=== PATIENT | female | born 1970 | race Two or more races ===

== ENCOUNTER 2023-12-15 15:41 | Emergency (ER) | payer MEDICAID, SELFPAY ==
--- NOTE | ~2023-12-15 | XR_ITS ---
EXAMINATION: XR CHEST 2 VIEWS CLINICAL INFORMATION: Sternal chest pain; burning sensation when breathing. COMPARISON: Chest radiographs dated 01/09/2012. TECHNIQUE: Frontal and lateral views of the chest were obtained. FINDINGS: The heart, great vessels, pulmonary vasculature and mediastinum are normal. The lungs show no focal infiltrate, effusion or pneumothorax. There is no acute osseous abnormality. There is a slight thoracic dextroscoliosis, which may be positional. XR/XR chest 2V IMPRESSION: No active cardiopulmonary disease.
[2023-12-15 16:40] VITALS: BP 104/65; PULSE 91; RESP 16; TEMP 36.8; O2SAT 100
--- NOTE | 2023-12-15 16:51 | ECG_ITS ---
Test Reason : CP Blood Pressure : / mmHG Vent. Rate : 086 BPM Atrial Rate : 086 BPM P-R Int : 134 ms QRS Dur : 068 ms QT Int : 356 ms P-R-T Axes : 073 022 052 degrees QTc Int : 426 ms Normal sinus rhythm Normal ECG No previous ECGs available Referred By: Leigh Bear Electronically Signed By:Trevor Monzon
--- NOTE | 2023-12-15 16:51 | ED.GENADULT ---
HPI - General Adult General Chief complaint: Back Pain/Injury Stated complaint: radiating pain from back around to ribs Time Seen by Provider: 12/15/23 21:28 Source: patient and family Mode of arrival: ambulatory Limitations: no limitations History of Present Illness HPI narrative: 53 yo female with PMH of DM, fibromyalgia here with c/o R sided rib and sternum pain after throwing luggage 9 weeks ago. She notes worse with palpation and movements. Has been seen x 2 in [place] when she went to see her daughter and started on motrin. Pain has never gotten better. No other associated symptoms MD complaint: chest wall pain Onset (ago): week(s) (9) Location: chest Radiation: back Severity: severe Quality: other (spasm) Pain Consistency: constant Relieving factors: rest Exacerbating factors: movement Associated symptoms: denies other symptoms Treatments prior to arrival: none Related Data Previous Rx's ?Medication ?Instructions ?Recorded diazepam 2 mg tablet (Valium) 2 mg PO BID PRN muscle spasm #10 12/15/23 tabs Allergies Allergy/AdvReac Type Severity Reaction Status Date / Time acetaminophen [From Percocet] AdvReac Vomiting Verified 12/15/23 16:51 oxycodone [From Percocet] AdvReac Vomiting Verified 12/15/23 16:51 Review of Systems Review of Systems: Constitutional : No Weight loss, No Fever, No Chills ENT/Mouth : No sore throat, No Rhinorrhea Eyes: No Eye Pain, No Swelling Cardiovascular : pos Chest Pain, no SOB, no Dyspnea on Exertion, No Orthopnea, No Edema, No Palpitations Respiratory : No Cough, No Sputum Gastrointestinal : no Nausea, No Vomiting, No Diarrhea, No abdominal Pain, No Hematochezia, No Melena Genitourinary : No Dysuria, No Urinary Frequency Musculoskeletal : No joint pain, No Myalgias, No Joint Swelling Skin : No Skin Lesions, No rash Neuro : No Weakness, No Numbness, No Dizziness, No Headache Psych : No Anxiety/Panic, No Depression All other systems reviewed and are negative [facility] Past Medical History Attestation statement: The following information was validated with the patient. Source: old records reviewed Medical History Fibromyalgia Diabetes Social History Social History (Updated 12/15/23 @ 22:01 by Spring Thomas DO) Patient Tobacco Use Status: Never used Tobacco Physical Exam ED Vital Signs: Vital Signs - 24 hr 12/15/23 16:40 12/15/23 20:06 Temperature 98.3 F 98.8 F Pulse Rate 91 87 Respiratory Rate 16 18 Blood Pressure 104/65 136/78 Pulse Oximetry 100 98 Oxygen Delivery Method Room Air Room Air BMI result Body Mass Index 20.0 Appearance: Alert. Oriented X3. No acute distress. Eyes: Pupils equal, round and reactive to light. ENT: Pharynx normal. Neck: Normal inspection. Neck supple. CVS: Normal heart rate and rhythm. Pulses normal. Chest: ttp along R ribs and costochondral border Respiratory: No respiratory distress. Breath sounds normal. Abdomen: Soft and nontender. Skin: Skin warm and dry. Normal skin color. Normal skin turgor. Extremities: No lower extremity edema. No calf ttp Neuro: Oriented X 3. No motor deficit. No sensory deficit. Course Course Course Narrative: This is an RME: Additional HPI, ROS, PE not included below will be deferred to primary provider. This is a [id number]-female, with a hx of fibromylagia, who presents to the ER with complaints of back pain after throwing her back out from luggage. She has been having chest pain, and feels swollen . She has been taking ibuprofen, muscle relaxants without any relief. Plan: EKG, CXR, Labs Medical Decision Making Medical Decision Making [facility] Narrative: 53 yo female with PMH of DM and fibromyalgia with 9 weeks of chest pain and rib pain after throwing luggage is it markedly reproduceable no other associated symptoms to suggest ACS or VTE. Suspect MSK pain will start on MRs and refer to her PCP. EKG, CXR and labs reassuring at this time. Differential Diagnosis Differential Diagnoses: The differential diagnosis associated with the presentation includes strain, costochondritis Admission/Observation Consideration of admission/observation: Escalation of care including admission/observation considered work up negative at 9 weeks stable for DC Lab Data [facility] Lab Attestation statement: I reviewed the patient's lab results. 12/15/23 17:01 12/15/23 17:01 Labs: Lab Results 12/15/23 Range/Units 17:01 WBC 5.5 (4.8-10.8) X10*3/uL RBC 4.96 (4.20-5.50) X10*6/uL Hgb 13.3 (12.0-16.0) g/dl Hct 40.5 (37.0-47.0) % MCV 81.7 (80.0-98.0) fL MCH 26.8 L (27.0-33.0) pg MCHC 32.8 (31.0-35.0) g/dl RDW 13.8 (11.0-16.0) % Plt Count 227 (160-400) X10*3/uL MPV 10.2 (9.4-12.3) fL Immature Gran % (Auto) 0.2 (0.0-0.4) % Neut % (Auto) 28.3 L (45-73) % Lymph % (Auto) 62.3 H (20-40) % Grainger % (Auto) 4.8 (2-11) % Eos % (Auto) 3.7 (0-4) % Baso % (Auto) 0.7 (0-2) % Lymph # (Auto) 3.4 (1.2-4.9) X10*3/uL Grainger # (Auto) 0.3 (0.1-1.2) X10*3/uL Eos # (Auto) 0.2 (0.0-0.4) X10*3/uL Baso # (Auto) 0.0 (0.0-0.2) X10*3/uL Abs Immat Gran (auto) 0.01 (0.00-0.03) X10*3/uL Absolute Neuts (auto) 1.6 L (2.0-8.3) x10*3/uL Absolute Nucleated RBC 0.000 (0.0-0.012) X10*3/uL Nucleated RBC % (auto) 0.0 (0.0-0.2) /100WBC Smear Tech's Comments VERIFIED Sodium 139 (135-145) mmol/L Potassium 4.2 (3.3-5.1) mmol/L Chloride 106 (96-108) mmol/L Carbon Dioxide 26 (22-29) mmol/L Anion Gap 11 L (12-20) BUN 16 (9-16) mg/dL Creatinine 0.74 (0.5-1.4) mg/dL Estim Creat Clear Calc 76.4 Estimated GFR > 60 Random Glucose 102 (60-115) mg/dL Calcium 9.2 (8.4-10.2) mg/dL Magnesium 2.4 (1.6-2.6) mg/dL Total Bilirubin 0.2 (0.0-1.0) mg/dL Direct Bilirubin < 0.2 (0.0-0.5) mg/dL AST 11 (5-31) U/L ALT 12 (0-31) U/L Alkaline Phosphatase 51 (39-117) U/L Troponin I High Sens 2.7 (<3.5-17.0) ng/L Total Protein 7.0 (6.5-8.0) g/dL Albumin 4.2 (3.5-5.0) g/dL Lipase 27 (8-78) U/L Influenza Type A (PCR) NEGATIVE (Negative) Influenza Type B (PCR) NEGATIVE (Negative) RSV RNA Qual (PCR) NEGATIVE (Negative) SARS-CoV-2 RNA (RT-PCR) NEGATIVE (Negative) Independent Interpretation I performed an independent interpretation of an: EKG and Plain X-Ray (normal ) Interpretation: Rate: 86 Rhythm: NSR [place]: normal Normal P waves. Normal EMILIA. Normal QRS complex. ST T wave : normal no LILLIAN qTC: 426 prior studies: no acute ischemia The study has been interpreted contemporaneously by me. . Radiology Impression Discussion of test interpretation with radiology: I have reviewed the radiologist's reading. Independent Historian Clinical information obtained from an independent historian. History obtained from or confirmed by: Other Prescription Management I considered prescription management with: Pain Medication and Other Discharge Plan Discharge Clinical Impression: Chest wall pain Patient Disposition: Home, Self-Care Instructions: Chest Wall Pain (ED) Additional Instructions: please follow up with your doctor as soon as possible your labs including heart markers, EKG, chest xray were reassuring return for worsening symptoms or concerns. Prescriptions: New diazepam [Valium] 2 mg tablet 2 mg PO BID PRN (Reason: muscle spasm) Qty: 10 0RF Print Language: Albanian
[2023-12-15 17:09] LABS: Basophils Percent Auto 0.7 % (0-2); Eosinophils Absolute Auto 0.2 X10*3/uL (0.0-0.4); Eosinophils Percent Auto 3.7 % (0-4); Hematocrit 40.5 % (37.0-47.0); Hemoglobin 13.3 g/dl (12.0-16.0); Imm Gran Abs Auto 0.01 X10*3/uL (0.00-0.03); Imm Gran Pct Auto 0.2 % (0.0-0.4); Lymphocytes Absolute Auto 3.4 X10*3/uL (1.2-4.9); Lymphocytes Percent Auto 62.3 % (20-40); MANUAL DIFF FLAG SCAN; Mean Corpuscular HGB Conc 32.8 g/dl (31.0-35.0); Mean Corpuscular Hemoglobin 26.8 pg (27.0-33.0); Mean Corpuscular Volume 81.7 fL (80.0-98.0); Mean Platelet Volume 10.2 fL (9.4-12.3); Monocytes Absolute Auto 0.3 X10*3/uL (0.1-1.2); Monocytes Percent Auto 4.8 % (2-11); Neutrophils Absolute Auto 1.6 x10*3/uL (2.0-8.3); Neutrophils Percent Auto 28.3 % (45-73); Platelet Count 227 X10*3/uL (160-400); Red Blood Count 4.96 X10*6/uL (4.20-5.50); Red Cell Distribution Width 13.8 % (11.0-16.0); SCAN SMEAR FLAG 1; White Blood Count 5.5 X10*3/uL (4.8-10.8)
[2023-12-15 17:26] LABS: Alanine Aminotransferase 12 U/L (0-31); Albumin Level 4.2 g/dL (3.5-5.0); Alkaline Phosphatase 51 U/L (39-117); Anion Gap 11 (12-20); Aspartate Amino Transferase 11 U/L (5-31); Bilirubin Direct < 0.2 mg/dL (0.0-0.5); Bilirubin Total 0.2 mg/dL (0.0-1.0); Blood Urea Nitrogen 16 mg/dL (9-16); Calcium 9.2 mg/dL (8.4-10.2); Carbon Dioxide 26 mmol/L (22-29); Chloride 106 mmol/L (96-108); Creatinine Clr Calc Pharmacy 76.4; Estimated Glomerular Filt Rate > 60; Glucose Random 102 mg/dL (60-115); Lipase 27 U/L (8-78); Magnesium 2.4 mg/dL (1.6-2.6); Potassium 4.2 mmol/L (3.3-5.1); Sodium 139 mmol/L (135-145)
[2023-12-15 17:32] LABS: Troponin-I High Sensitivity 2.7 ng/L (<3.5-17.0)
[2023-12-15 17:40] LABS: SLIDE REVIEW VERIFIED
[2023-12-15 17:44] LABS: Influenza A PCR NEGATIVE (Negative); Influenza B PCR NEGATIVE (Negative); Resp Syncy Virus RNA Qual PCR NEGATIVE (Negative); SARS COV2 PCR INHOUSE NEGATIVE (Negative)
[2023-12-15 20:06] VITALS: BP 136/78; PULSE 87; RESP 18; TEMP 37.1; O2SAT 98
[2023-12-15] MEDS: diazePAM 5 MG TABLET PO (22:18)
[2023-12-15 22:21] VITALS: BP 153/90; PULSE 86; RESP 18; TEMP 36.8; O2SAT 99
== END 2023-12-15 22:22 | disposition home or self-care (01) ==
PROVIDERS: Physician Assistant Medical; Emergency Provider Emergency Medicine; PCP Nurse Practitioner Family
DX: M54.50 Low back pain, unspecified (principal); M79.7 Fibromyalgia; R07.89 Other chest pain; Z11.52 Encounter for screening for COVID-19; Z20.822 Contact with and (suspected) exposure to COVID-19; Z79.899 Other long term (current) drug therapy
CPT/HCPCS: 0241U; 71046; 80048; 80076; 83690; 83735; 84484; 85025; 93005; 99283; 99284

== ENCOUNTER → 2023-12-15 16:51 | Outpatient (BNV) | payer MEDICAID, SELFPAY | PROVIDERS: Emergency Provider Emergency Medicine; PCP Nurse Practitioner Family; Visit Provider Internal Medicine Cardiovascular Disease | DX: R07.9 Chest pain, unspecified (principal) | CPT/HCPCS: 93010 ==

== ENCOUNTER 2024-04-02 09:25 | Outpatient (AMB) | payer MEDICAID, SELFPAY ==
--- NOTE | 2024-04-02 09:26 | MHC.OFFVIS ---
Vital Signs 04/02/24 09:28 Height 5 ft 5 in Weight 102 lb BMI 17.0 BP 127/79 Blood Pressure Location Lt brachial Position Sitting Pulse 111 H Pulse Source Pulse Oximeter Pulse Oximetry (%) 96 Oxygen Delivery Method Room Air Intake Visit Reasons: Chronic Back Pain/Fibromyalgia Allergies acetaminophen [From Percocet] Adverse Reaction (Verified 04/02/24 09:34) Vomiting oxycodone [From Percocet] Adverse Reaction (Verified 04/02/24 09:34) Vomiting Medication List - Last Reconciled 04/02/24 by Evelyn Urias diazepam (Valium) 2 mg PO BID PRN ibuprofen 400 mg PO Q8H HPI Comments Details: Sherri is a very pleasant 53-year-old female who presents the office today for evaluation and management of her chronic thoracic back pain. She has been suffering with this pain for the last 6 months. Pain started after she lifted approximately 50 lb of luggage while on a trip to visit her child Since then patient has been suffering with midline thoracic back pain with radiation around to the front. Pain is worse with movement, palpation, activity. Pain today is rated as a 10/10, constant. She has been evaluated in the emergency room for this pain multiple times without findings. She completed physical therapy 3 months ago without improvement of her pain. She has tried massage, heat without improvement of her pain. NSAIDs provided minimal improvement. Muscle relaxers were of no help. She formally was on gabapentin, this was discontinued. In last 6 months she has been given 3 courses of oral steroids which have not improved her pain, completed most recent course of prednisone one-week ago. Patient reports the pain is so severe she is having difficulty eating and will often vomit from the pain. She is currently under the care of GI, awaiting upper endoscopy. In terms of muscle damage condition is described as spasming, stabbing, sharp, tingling, shooting, shocking, cramping, numb, throbbing. Pain is negatively impacting patient's enjoyment of life, general activity, mood, normal work, recreational activity, sleep and walking. Patient is known diabetic, she reports her numbers have been controlled. States she is currently off all of her diabetes medications. [facility] Medical History Fibromyalgia Diabetes Social History (Updated 12/15/23 @ 22:01 by Spring Thomas DO) Patient Tobacco Use Status: Never used Tobacco Review of Systems Const All systems reviewed & are unremarkable except as noted in HPI and below Physical Exam Vital Signs: Last Vital Signs Pulse 111 H 04/02/24 09:28 BP 127/79 04/02/24 09:28 Pulse Ox 96 04/02/24 09:28 Oxygen Delivery Method Room Air 04/02/24 09:28 BMI result Body Mass Index 17.0 General: awake, alert, oriented. Answers questions appropriately. Fully engaged in examination. Thin. Tearful throughout exam, appears uncomfortable. Skin: warm, dry, intact HEENT: Normocephalic. Hearing intact. Cardiac: External chest normal in appearance. Respiratory: No cough, audible wheezing or stridor. Abdomen: without gross distension. MS: No obvious swelling or deformities. Able to stand on bilateral tiptoes and bilateral heels.? Able to transition from sit to stand unassisted. Ambulates with bilaterally normal heel strike and toe off Tender to palpation midline thoracic vertebrae and thoracic paraspinal muscles bilaterally Neurological: Oriented to person, place, time and situation. Thought process intact. No gait abnormalities appreciated. Psychiatric: Appropriate mood and affect. Good judgment and insight. Results Reviewed Results Reviewed: 12/15/2023 CXR The heart, great vessels, pulmonary vasculature and mediastinum are normal. The lungs show no focal infiltrate, effusion or pneumothorax. There is no acute osseous abnormality. There is a slight thoracic dextroscoliosis, which may be positional. IMPRESSION: No active cardiopulmonary disease. Assessment & Plan Assessment & Plan (1) Chronic midline thoracic back pain: Code(s): M54.6 - Pain in thoracic spine; G89.29 - Other chronic pain Category: Medical Plan Sherri is a very pleasant 53-year-old female who presents the office today for chronic midline thoracic pain Patient has exhausted conservative therapy including PT, heat, massage, nonsteroidal anti-inflammatory medications, muscle relaxers and prescription medications all without improvement of her pain. MRI thoracic spine ordered for evaluation, patient with intractable midline thoracic pain refractory to conservative therapy including greater than 6 months PT, NSAIDs, muscle relaxers, heat and massage. Lidocaine 5% patches, apply to most painful area on for 12 hours off for 12 hours. Tizanidine 2 mg p.o. 3 times daily as needed. Patient advised on cautions for use. Do not take with other [employer] suppressants. No driving while taking this medication. Celebrex 50 mg p.o. b.i.d. as needed. Take with food, do not take with any other nonsteroidal anti-inflammatory medications. Discussed options for treatment including diagnostic interventional testing, epidural steroid injections, peripheral nerve stimulation with Sprint, RFA and more permanent neuromodulation. We will schedule for bilateral diagnostic fluoroscopy guided T10, T11, T12 medial branch blocks with local anesthetic. If patient finds good relief will plan for bilateral thoracic sprint peripheral nerve stimulator. All questions and concerns have been answered and patient agrees with the plan. Follow up after injections and sooner if needed. Orders: Orders MR thoracic spine wo con Today G89.29 - Other chronic pain, M54.6 - Pain in thoracic spine Medications: New tizanidine No driving while taking this medication. May cause drowsiness. Do not take with alcohol or other [employer] Depressants. 2 mg PO TID PRN 90 tabs 1RF muscle spasticity celecoxib Take with food. Do not take with any other nonsteroidal anti-inflammatory medications. 50 mg PO BID 30 caps 0RF lidocaine 5% leave on most painful area for up to 12 hrs 1 patch topical DAILY 30 ea 3RF Coding Level of Care Code New Pt Level 4 (24314) Diagnoses Chronic midline thoracic back pain M54.6; G89.29
[2024-04-02 09:28] VITALS: BP 127/79; PULSE 111; O2SAT 96; BMI 17.0
== END 2024-04-02 10:20 | disposition home or self-care (01) ==
PROVIDERS: PCP Nurse Practitioner Family; Referring Provider Physician Assistant; Visit Provider Registered Nurse Emergency
DX: M54.6 Pain in thoracic spine (principal); G89.29 Other chronic pain
CPT/HCPCS: 99204

== ENCOUNTER → 2024-04-02 09:25 | Outpatient (BNVA) | payer MEDICAID, SELFPAY | PROVIDERS: PCP Nurse Practitioner Family; Referring Provider Physician Assistant; Visit Provider Registered Nurse Emergency | DX: M54.6 Pain in thoracic spine (principal); G89.29 Other chronic pain | CPT/HCPCS: 99212 ==